=== PATIENT | male | born 2005 | race African-American/Black ===

== ENCOUNTER 2023-11-23 21:25 | Emergency (ER) | payer OTHER, SELFPAY ==
[2023-11-23 21:23] VITALS: BP 122/55; PULSE 93; RESP 16; TEMP 37.7; O2SAT 100
--- NOTE | 2023-11-23 21:46 | ECG_ITS ---
SEE SCANNED COPY FOR CONFIRMED REPORT MTDD
[2023-11-23 21:55] LABS: Basophils Absolute Auto 0.1 K/mm3 (0.0-0.1); Basophils Percent Auto 0.5 % (0.2-1.2); Hematocrit 48.7 % (42.0-52.0); Hemoglobin 15.9 g/dL (14.0-18.0); Immature Granulocyte Absolute 0.02 K/mm3 (0.00-0.031); Immature Granulocyte Percent A 0.2 % (0-0.5); Lymphocytes Absolute Auto 1.94 K/mm3 (0.9-3.2); Lymphocytes Percent Auto 19.2 % (18.3-44.2); Mean Corpuscular HGB Conc 32.6 g/dl (32-36); Mean Corpuscular Hemoglobin 26.9 pg (26-34); Mean Corpuscular Volume 82.4 fl (80-100); Mean Platelet Volume 10.9 fl (7.4-10.4); Monocytes Absolute Auto 0.8 K/mm3 (0.1-0.6); Monocytes Percent Auto 8.2 % (2.6-8.5); Neutrophils Absolute Auto 7.3 K/mm3 (1.3-6.7); Neutrophils Percent Auto 71.9 % (45.5-73.1); Platelet Count Result 273 k/mm3 (150-375); Red Blood Count 5.91 M/mm3 (4.6-6.20); Red Cell Distribution Width 13.1 % (11.5-14.5); White Blood Count 10.1 K/mm3 (4.5-10.0)
--- NOTE | 2023-11-23 21:59 | PC.NURSE ---
Pt's belongings removed by pt and bagged up, tagged with pt sticker and placed in locked cabinet. Pt calm and cooperative, tearful at times. PD at bedside. Sitter outside room ready to watch pt.
[2023-11-23 22:04] LABS: Acetaminophen 10 ug/mL (10-30); Ethanol < 10 mg/dL (<10); Salicylate < 1.0 mg/dL (2-20)
[2023-11-23 22:05] LABS: Alanine Aminotransferase 27 U/L (6-50); Alkaline Phosphatase 66 U/L (38-126); Anion Gap 8 mmol/L (4-12); Aspartate Amino Transferase 39 U/L (17-59); Bilirubin,Total 2.2 mg/dL (0.2-1.3); Blood Urea Nitrogen 8 mg/dL (9-20); Calcium 9.6 mg/dL (8.4-10.2); Carbon Dioxide 26 mmol/L (22-30); Chloride 103 mmol/L (98-107); Estimated CRCL calculation 102 ml/min; Estimated Glomerular Filt Rate > 60; Glucose 107 mg/dL (65-110); Potassium 3.8 mmol/L (3.4-5.0); Sodium 137 mmol/L (137-145)
[2023-11-23 22:11] VITALS: RESP 14; O2SAT 99
--- NOTE | 2023-11-23 22:26 | PC.NURSE ---
Poison control notified, Octaviano Nascimento. Suggests supportive care and a repeat tylenol level at 0000 tonight. Report #[id number].
[2023-11-23 22:31] LABS: Influenza A QL RT-PCR Negative (Negative); Influenza B QL RT-PCR Negative (Negative); RSV RNA, RT-PCR Negative (Negative); SARS-CoV-2 RNA PCR Negative (Negative)
--- NOTE | 2023-11-23 22:43 | ED.GENADULT ---
HPI - General Adult General Chief complaint: Overdose Stated complaint: OD WITH SUICIDE INTENT Time Seen by Provider: 11/23/23 22:05 History of Present Illness HPI narrative: This is a 18-year-old male presenting after an overdose. Patient has been dating a girl for about 2 months. He told her her many his personal feelings and then she stopped talking and.Patient said that he is very lonely then took 4 pills of 500 mg Tylenol attempt to harm self. He has never attempted suicide before. He has never been hospitalized for psychiatric illness. He has no homicidal ideation. No auditory visual hallucinations. Use of drugs or alcohol. Does not have access to a firearm. He is currently asymptomatic. Related Data Allergies Allergy/AdvReac Type Severity Reaction Status Date / Time No Known Allergies Allergy Verified 11/23/23 21:28 [facility] Social History Social History Substance use type: does not use Exam Narrative: APPEARANCE: No apparent distress. Head: atraumatic. EYES: EOMI, NOSE: Atraumatic NECK: Trachea midline RESPIRATORY: No increased rate of breathing CTAB CARDIOVASCULAR: RRR, ABDOMINAL: Non-distended, soft nontender MUSCULOSKELETAl: No obvious deformities NEURO: Alert. Moving 4/4 extremities SKIN:: Warm, dry. Normal color PSYCHIATRIC: Normal affect Course Vital Signs Vital signs: Vital Signs Temperature 100 F H 11/23/23 21:23 Pulse Rate 93 11/23/23 21:23 Respiratory Rate 16 11/23/23 21:23 Blood Pressure 122/55 L 11/23/23 21:23 Pulse Oximetry 100 11/23/23 21:23 Oxygen Delivery Room Air 11/23/23 21:23 Temperature 100 F H 11/23/23 21:23 Pulse Rate 93 11/23/23 21:23 Respiratory Rate 14 11/23/23 22:11 Blood Pressure 122/55 L 11/23/23 21:23 Pulse Oximetry 99 11/23/23 22:11 Oxygen Delivery Room Air 11/23/23 22:11 Medical Decision Making MDM Narrative Medical decision making narrative: -Course: 18-year-old male presenting for acetaminophen overdose. Overdose was at 8:00 p.m.. Repeat acetaminophen levels been ordered for midnight. After that the patient be medically cleared for psychiatric evaluation. Patient was evaluated by the crisis Center and they have safety contracted the patient. They do not believe he is a true suicide risk. and patient will be discharged with close follow-up. -DDX includes but is not limited to: Acetaminophen overdose, suicidal ideation, adjustment disorder, depression -Independent interpretation of studies: UDS positive for cannabinoids -Shared decision making / Disposition: discharge Vital Signs Vital Signs: Vital Signs Temperature 100 F H 11/23/23 21:23 Pulse Rate 93 11/23/23 21:23 Respiratory Rate 16 11/23/23 21:23 Blood Pressure 122/55 L 11/23/23 21:23 Pulse Oximetry 100 11/23/23 21:23 Oxygen Delivery Room Air 11/23/23 21:23 Temperature 100 F H 11/23/23 21:23 Pulse Rate 93 11/23/23 21:23 Respiratory Rate 14 11/23/23 22:11 Blood Pressure 122/55 L 11/23/23 21:23 Pulse Oximetry 99 11/23/23 22:11 Oxygen Delivery Room Air 11/23/23 22:11 Lab Data 11/23/23 21:49 11/23/23 21:49 Labs: Lab Results 11/23/23 11/23/23 11/24/23 Range/Units 21:49 22:49 00:04 WBC 10.1 H (4.5-10.0) K/mm3 RBC 5.91 (4.6-6.20) M/mm3 Hgb 15.9 (14.0-18.0) g/dL Hct 48.7 (42.0-52.0) % MCV 82.4 (80-100) fl MCH 26.9 (26-34) pg MCHC 32.6 (32-36) g/dl RDW 13.1 (11.5-14.5) % Plt Count 273 (150-375) k/mm3 MPV 10.9 H (7.4-10.4) fl Immature Gran % (Auto) 0.2 (0-0.5) % Neut % (Auto) 71.9 (45.5-73.1) % Lymph % (Auto) 19.2 (18.3-44.2) % [place] % (Auto) 8.2 (2.6-8.5) % Eos % (Auto) 0.0 (0-4.4) % Baso % (Auto) 0.5 (0.2-1.2) % Lymph # (Auto) 1.94 (0.9-3.2) K/mm3 [place] # (Auto) 0.8 H (0.1-0.6) K/mm3 Eos # (Auto) 0.0 (0-0.3) K/mm3
[2023-11-23 22:58] LABS: Appearance Urine Clear (Clear); Bacteria Urine None Seen /hpf; Bilirubin Urine Negative (Negative); Blood Urine Negative (Negative); Color Urine Yellow (Yellow); Glucose Urine UA Negative (Negative); Ketones Urine 2+ mg/dL (Negative); Leukocyte Esterase Ur Negative LEU/UL (Negative); Nitrate Urine Negative (Negative); Non Pathogenic Casts 0-2; Protein Urine Trace mg/dL (Negative); RBC Urine 0-2 /hpf (0-2); Specific Grav Ur 1.028 (1.001-1.035); Squamous Epithelial Cell Urine None Seen /hpf (Few); WBC Urine 0-5 /hpf (0-3); pH Urine 6.5 (5.0-9.0)
[2023-11-23 22:59] LABS: Add Urine Microscopic? YES
[2023-11-23 23:11] LABS: Amphetamine Screen Urine Negative (Negative); Barbiturate Screen Urine Negative (Negative); Benzodiazepines Screen Urine Negative (Negative); Cannabinoid Screen Urine Positive (Negative); Cocaine Screen Urine Negative (Negative); Methadone Screen Urine Negative (Negative); Opiate Screen Urine Negative (Negative); Phencyclidine Screen Urine Negative (Negative)
[2023-11-24 00:19] LABS: Acetaminophen 11 ug/mL (10-30)
--- NOTE | 2023-11-24 00:32 | PC.NURSE ---
Per Dr Taylor, pt is medically cleared.
[2023-11-24 03:37] VITALS: BP 108/57; PULSE 64; RESP 14; O2SAT 99
== END 2023-11-24 03:41 | disposition home or self-care (01) ==
PROVIDERS: Emergency Provider Emergency Medicine; PCP Emergency Medicine
DX: F43.20 Adjustment disorder, unspecified (principal); Z11.52 Encounter for screening for COVID-19
CPT/HCPCS: 36415; 80053; 80307; 81001; 84443; 85025; 87637; 93005; 99284